=== PATIENT | female | born 1990 | race Caucasian/White ===

== ENCOUNTER 2017-12-13 11:09 | Outpatient (CLI) | payer OTHER | END 2017-12-13 11:16 | disposition home or self-care (01) | LOC: RAD 11:09 | DX: M25.562 Pain in left knee (principal) ==

== ENCOUNTER 2018-03-13 07:11 | Outpatient (CLI) | payer OTHER | END 2018-03-13 08:20 | disposition home or self-care (01) | LOC: LAB 07:11 | DX: D64.89 Other specified anemias (principal); R42 Dizziness and giddiness ==

== ENCOUNTER 2018-03-14 14:25 | Emergency (ER) | payer OTHER ==
[~2018-03-14] VITALS: Ht 157.5 cm; Wt 97.1 kg
== END 2018-03-14 16:59 | disposition home or self-care (01) ==
LOC: ER 14:25
DX: R07.89 Other chest pain (principal); K21.9 Gastro-esophageal reflux disease without esophagitis

== ENCOUNTER 2018-04-13 12:13 | Outpatient (CLI) | payer OTHER | END 2018-04-13 12:31 | disposition home or self-care (01) | LOC: RAD 12:13 | DX: N64.59 Other signs and symptoms in breast (principal); N64.89 Other specified disorders of breast; N63.10 Unspecified lump in the right breast, unspecified quadrant; N63.20 Unspecified lump in the left breast, unspecified quadrant; R10.2 Pelvic and perineal pain ==

== ENCOUNTER → 2018-12-14 16:45 | Outpatient (CLI) | payer OTHER | END | disposition home or self-care (01) | LOC: LAB 16:45 | DX: A49.3 Mycoplasma infection, unspecified site (principal) ==

== ENCOUNTER 2018-12-31 16:06 | Outpatient (CLI) | payer OTHER | END 2018-12-31 16:13 | disposition home or self-care (01) | LOC: MAMO-SONO 16:06 | DX: N64.59 Other signs and symptoms in breast (principal); N64.89 Other specified disorders of breast; N63.10 Unspecified lump in the right breast, unspecified quadrant; N63.20 Unspecified lump in the left breast, unspecified quadrant ==

== ENCOUNTER → 2019-02-17 | Outpatient (CLI) | payer OTHER | END | disposition home or self-care (01) | LOC: RAD 09:39 | DX: M54.2 Cervicalgia (principal); M54.89 Other dorsalgia ==

== ENCOUNTER → 2019-09-22 09:49 | Outpatient (CLI) | payer OTHER | END | disposition home or self-care (01) | LOC: LAB 09:49 | PROVIDERS: ATTEND General Practice | DX: Z11.3 Encounter for screening for infections with a predominantly sexual mode of transmission (principal); Z00.8 Encounter for other general examination; Z13.6 Encounter for screening for cardiovascular disorders; E66.3 Overweight; Z11.4 Encounter for screening for human immunodeficiency virus [HIV]; Z11.1 Encounter for screening for respiratory tuberculosis ==

== ENCOUNTER → 2019-11-10 15:07 | Outpatient (CLI) | payer OTHER | END | disposition home or self-care (01) | LOC: LAB 15:07 | DX: Z20.828 Contact with and (suspected) exposure to other viral communicable diseases (principal) ==

== ENCOUNTER 2019-11-22 10:36 | Outpatient (CLI) | payer OTHER | END 2019-11-22 10:46 | disposition home or self-care (01) | LOC: SONOGRAMA 10:36 | PROVIDERS: ATTEND Obstetrics & Gynecology | DX: R10.2 Pelvic and perineal pain (principal); Z01.411 Encounter for gynecological examination (general) (routine) with abnormal findings; N76.0 Acute vaginitis ==

== ENCOUNTER → 2019-12-28 | Outpatient (CLI) | payer OTHER | END | disposition home or self-care (01) | LOC: PPH VACUNA 09:00 | DX: Z23 Encounter for immunization (principal) ==

== ENCOUNTER 2020-01-24 06:49 | Outpatient (CLI) | payer OTHER | END 2020-01-24 06:54 | disposition home or self-care (01) | LOC: LAB 06:49 | DX: Z20.828 Contact with and (suspected) exposure to other viral communicable diseases (principal) ==

== ENCOUNTER 2020-04-05 14:08 | Outpatient (CLI) | payer OTHER | END 2020-04-05 14:12 | disposition home or self-care (01) | LOC: LAB 14:08 | DX: Z20.828 Contact with and (suspected) exposure to other viral communicable diseases (principal) ==

== ENCOUNTER 2020-04-10 13:05 | Outpatient (CLI) | payer OTHER | END 2020-04-10 13:10 | disposition HB | LOC: RAD 13:05 | DX: M62.830 Muscle spasm of back (principal); M46.06 Spinal enthesopathy, lumbar region; M46.09 Spinal enthesopathy, multiple sites in spine; M46.02 Spinal enthesopathy, cervical region ==

== ENCOUNTER 2020-08-29 08:00 | Outpatient (CLI) | payer OTHER | END 2020-08-29 08:30 | disposition home or self-care (01) | LOC: PPH VACUNA 08:00 | DX: Z23 Encounter for immunization (principal) ==

== ENCOUNTER 2020-09-19 08:00 | Outpatient (CLI) | payer OTHER | END 2020-09-19 08:30 | disposition home or self-care (01) | LOC: PPH VACUNA 08:00 | DX: Z23 Encounter for immunization (principal) ==

== ENCOUNTER → 2020-11-24 08:18 | Outpatient (CLI) | payer OTHER | END | disposition home or self-care (01) | LOC: LAB 11-18 14:21 | DX: L63.8 Other alopecia areata (principal); D50.8 Other iron deficiency anemias; D51.8 Other vitamin B12 deficiency anemias; D64.89 Other specified anemias; D52.0 Dietary folate deficiency anemia; N39.0 Urinary tract infection, site not specified; E11.9 Type 2 diabetes mellitus without complications; E03.8 Other specified hypothyroidism; E78.2 Mixed hyperlipidemia; Z20.828 Contact with and (suspected) exposure to other viral communicable diseases ==

== ENCOUNTER 2020-12-21 16:20 | Outpatient (CLI) | payer OTHER | END 2020-12-21 16:25 | disposition home or self-care (01) | LOC: PPH VACUNA 16:20 | PROVIDERS: ATTEND Emergency Medicine Pediatric Emergency Medicine | DX: Z23 Encounter for immunization (principal) ==